=== PATIENT | male | born 1965 ===

== ENCOUNTER 2017-10-15 14:14 | Emergency (ER) | payer BC ==
--- NOTE | 2017-10-15 15:14 | UC ---
Eye Complaint HPI - History of Current Complaint Chief Complaint: UCEye Stated Complaint: (RT) EYE COMPLAINT Time Seen by Provider: 10/15/17 15:07 Hx Obtained From: Patient Onset/Duration: Sudden Onset Timing: Constant Severity Initially: Moderate Severity Currently: Moderate Pain Intensity: 0 Location of Injury: Conjunctiva Character: Dull - red eye - scratching present this am Aggravating Factor(s): Nothing Alleviating Factor(s): Nothing Associated Signs And Symptoms: Positive: Drainage (Purulent) - Risk Factors Penetrating Injury Risk Factor: Negative Acute Glaucoma Risk Factors: Negative - Allergies/Home Medications Allergies/Adverse Reactions: Allergies Allergy/AdvReac Type Severity Reaction Status Date / Time No Known Allergies Allergy Verified 10/15/17 15:01 Home Medications: Home Medications Aspirin EC TAB* [Ecotrin EC Low Dose 81 MG*] 81 mg PO DAILY 10/15/17 [History Confirmed 10/15/17] Atorvastatin* [Lipitor 10 MG*] 10 mg PO DAILY 10/15/17 [History Confirmed ] Hydrochlorothiazide TAB* [Hydrodiuril TAB*] 25 mg PO DAILY 10/15/17 [History Confirmed 10/15/17] Insulin GLARGINE(*) [Lantus(*)] 20 units SQ BEDTIME 10/15/17 [History Confirmed 10/15/17] Lisinopril TAB* [Prinivil TAB 5 MG*] 5 mg PO DAILY 10/15/17 [History Confirmed 10/15/17] Omeprazole CAP* [Prilosec CAP* 20 MG] 20 mg PO DAILY 10/15/17 [History Confirmed 10/15/17] amLODIPine TAB* [Norvasc 5 mg TAB*] 5 mg PO DAILY 10/15/17 [History Confirmed ] glipiZIDE TAB* [Glucotrol TAB*] 5 mg PO DAILY 10/15/17 [History Confirmed ] metFORMIN* [Glucophage 1000 MG TAB *] 1,000 mg PO DAILY 10/15/17 [History Confirmed 10/15/17] PMH/Surg Hx/FS Hx/Imm Hx Previously Healthy: Yes Endocrine History: Diabetes, Dyslipidemia Cardiovascular History: Cardiac Disease, Hypertension - Surgical History Surgical History: Yes Surgery Procedure, Year, and Place: appendectomy. hernia repair - Social History Occupation: Employed Full-time Lives: With Family Alcohol Use: None Substance Use Type: None Smoking Status (MU): Never Smoked Tobacco Review of Systems Constitutional: Negative Skin: Negative Eyes: Drainage, Eye Redness, Other - scratchiness ENT: Negative Respiratory: Negative Cardiovascular: Negative Gastrointestinal: Negative Genitourinary: Negative Motor: Negative Neurovascular: Negative Musculoskeletal: Negative Neurological: Negative Psychological: Negative Is Patient Immunocompromised?: No All Other Systems Reviewed And Are Negative: Yes Physical Exam Triage Information Reviewed: Yes Appearance: Well-Appearing Vital Signs: Initial Vital Signs Temp 98.4 F 10/15/17 14:59 Pulse 73 10/15/17 14:59 Resp 16 10/15/17 14:59 BP 125/78 10/15/17 14:59 Pulse Ox 99 10/15/17 14:59 Vital Signs Reviewed: Yes Eyes: Positive: Conjunctiva Inflamed, Discharge, Other: - erythema ENT Exam: Normal Neurological Exam: Normal Psychological Exam: Normal Skin Exam: Normal Eye Complaint Course/Dx - Course Course Of Treatment: eye gtts as directed. warm compress right eye prn. fu prn - Differential Dx/Diagnosis Provider Diagnoses: conjunctivitis Discharge - Sign-Out/Discharge Documenting (check all that apply): Discharge - Discharge Plan Condition: Stable Disposition: HOME Prescriptions: Ofloxacin 0.3%(Ophth)(Nf) [Ocuflox OPTH 0.3%(NF)] 0.3 % OP TID 5 Days #2 liset Patient Education Materials: Conjunctivitis (ED) Referrals: No Primary Care Phys,NOPCP [Primary Care Provider] - 1 Week (from [facility] has pcp at home doesnt want referral here) - Billing Disposition and Condition Condition: STABLE Disposition: HOME
== END 2017-10-15 15:24 | disposition home or self-care (01) ==
LOC: UCCORT 14:14
DX: H10.9 Unspecified conjunctivitis (principal); E11.9 Type 2 diabetes mellitus without complications; Z79.84 Long term (current) use of oral hypoglycemic drugs; Z79.4 Long term (current) use of insulin; I10 Essential (primary) hypertension; I51.9 Heart disease, unspecified
CPT/HCPCS: 99202; G0463